=== PATIENT | male | born 1955 ===

== ENCOUNTER → 2016-09-21 18:21 | Outpatient (CLI) | payer OTHER ==
[2016-09-24 03:11] LABS: TESTOSTERONE - FREE 6.1 pg/mL (7.2-24.0); TESTOSTERONE - SERUM 242 ng/dL (348-1197)
== END | disposition home or self-care (01) ==
LOC: D.LABREF 18:21
PROVIDERS: Family Medicine
DX: E29.1 Testicular hypofunction (principal)

== ENCOUNTER → 2016-09-28 18:52 | Outpatient (CLI) | payer OTHER | END | disposition home or self-care (01) | LOC: D.LAB 18:52 | DX: Z11.59 Encounter for screening for other viral diseases (principal) ==

== ENCOUNTER → 2017-05-18 19:01 | Outpatient (CLI) | payer OTHER | END | disposition home or self-care (01) | LOC: D.LABREF 19:01 | DX: E29.1 Testicular hypofunction (principal) ==